=== PATIENT | female | born 1965 ===

== ENCOUNTER 2016-08-10 19:42 | Emergency (ER) | payer OTHER ==
[2016-08-10 19:42] VITALS: BMI 32.0
[2016-08-10 20:02] VITALS: BP 165/95; PULSE 100; RESP 18; TEMP 98.5; O2SAT 99
--- NOTE | 2016-08-10 21:23 | ED PDOC ---
HPI: Eye Injury/Pain Time Seen by Provider: 08/10/16 20:32 Chief Complaint (Nursing): Eye Problem Chief Complaint (Provider): left eye pain History Per: Patient History/Exam Limitations: no limitations Onset/Duration Of Symptoms: Days (x 4) Current Symptoms Are (Timing): Still Present Injury To Eye?: No Additional Complaint(s): Felisha Castro is a 50 year old female, with a previous medical history of hypertension, who presents to the ED with complaints of left eye pain ongoing for the past 4 days. Pt reports associated symptoms of swelling and redness to the corner of the left eye. Pt reports no contact usages, trauma or visual changes. Pt reports to self medicating with OTC eye drops which have provided no relief. Pt denies any additional complaints at this time. PMD: none provided Past Medical History Reviewed: Historical Data, Nursing Documentation, Vital Signs Vital Signs: Last Vital Signs Temp 98.5 F 08/10/16 20:00 Pulse 100 H 08/10/16 20:00 Resp 18 08/10/16 20:00 BP 165/95 H 08/10/16 20:00 Pulse Ox 99 08/10/16 20:00 - Medical History PMH: Asthma, HTN - Family History Family History: States: Unknown Family Hx - Immunization History Hx Tetanus Toxoid Vaccination: No Hx Influenza Vaccination: Yes Hx Pneumococcal Vaccination: No - Home Medications Home Medications: Ambulatory Orders Medication Instructions Recorded Cyclobenzaprine [Cyclobenzaprine 10 mg PO TID #30 tab 11/23/15 HCl] Ibuprofen 600 mg PO Q8 #30 tablet 11/23/15 Acetaminophen [Tylenol] 325 mg PO Q6 PRN #20 tab 12/29/15 Amoxicillin/Clavulanate [Augmentin 1 tab PO BID #14 tab 12/29/15 875 MG-125 MG] Naproxen [Naprosyn] 500 mg PO BID #20 tab 12/29/15 diaZEpam [Valium] 5 mg PO BID #10 tab 12/29/15 Naproxen [Naprosyn Tab] 375 mg PO Q8 PRN #21 tab 02/10/16 - Allergies Allergies/Adverse Reactions: Allergies Allergy/AdvReac Type Severity Reaction Status Date / Time apple Allergy Verified 12/29/15 19:09 banana Allergy Verified 12/29/15 19:09 enciso Allergy Verified 12/29/15 19:09 Review of Systems ROS Statement: Except As Marked, All Systems Reviewed And Found Negative Eyes: Positive for: Pain (left eye), Redness, Other (swelling ). Negative for: Vision Change Physical Exam - Reviewed Nursing Documentation Reviewed: Yes Vital Signs Reviewed: Yes - Physical Exam Appears: Positive for: Well, Non-toxic, No Acute Distress Eye Exam: Positive for: EOMI, PERRL, Other (small pinguecula on the left medial canthus; no discharge). Negative for: Nystagmus, Periorbital swelling, Periorbital tenderness, Conjunctival injection Neurologic/Psych: Positive for: Alert, Oriented - ECG O2 Sat by Pulse Oximetry: 99 (RA) Pulse Ox Interpretation: Normal - Progress ED Course And Treament: Pt is advised to follow up with Dr. Ferguson for further evaluation. Medical Decision Making Medical Decision Making: Initial Impression: Pinguecula Initial Plan: * physical exam * disposition Scribe Attestation: Documented by Juliet Courtney, acting as a scribe for Janes Beltran PA-C. Provider Scribe Attestation: All medical record entries made by the Scribe were at my direction and personally dictated by me. I have reviewed the chart and agree that the record accurately reflects my personal performance of the history, physical exam, medical decision making, and the department course for this patient. I have also personally directed, reviewed, and agree with the discharge instructions and disposition. Disposition - Clinical Impression Clinical Impression: Pinguecula - Patient ED Disposition Is Patient to be Admitted: No - Disposition Referrals: Tevin Ferguson MD [Staff Provider] - Disposition: Routine/Home Disposition Time: 21:45 Condition: STABLE Additional Instructions: Follow up with Dr. Ferguson for further evaluation of pinguecula. Instructions: Eye Pain (ED) Print Language: TAIWANESE
== END 2016-08-10 21:56 | disposition home or self-care (01) ==
LOC: H.ER 19:42
DX: H11.159 Pinguecula, unspecified eye (principal); I10 Essential (primary) hypertension

== ENCOUNTER 2016-10-21 21:43 | Emergency (ER) | payer OTHER ==
[2016-10-21 21:44] VITALS: BMI 32.0
[2016-10-21 21:58] VITALS: BP 149/89; PULSE 74; RESP 16; TEMP 98.4; O2SAT 100
--- NOTE | 2016-10-21 22:17 | ED PDOC ---
HPI: CCC, URI, Sore Throat Time Seen by Provider: 10/21/16 21:50 Chief Complaint (Nursing): ENT Problem Chief Complaint (Provider): sore throat History Per: Patient History/Exam Limitations: no limitations Have you had recent travel within the past 21 days to any of the following countries: [place], [place], [place] or [place]?: No Location Of Pain: Throat Associated Symptoms: Sore Throat, Cough. denies: Fever, Chills, Sputum, Neck Pain, Sinus Drainage, Myalgias, Nasal Congestion, Nausea, Vomiting, Diarrhea Past Medical History Reviewed: Historical Data, Nursing Documentation, Vital Signs Vital Signs: Last Vital Signs Temp 98.4 F 10/21/16 21:50 Pulse 74 10/21/16 21:50 Resp 16 10/21/16 21:50 BP 149/89 10/21/16 21:50 Pulse Ox 100 10/21/16 22:19 - Medical History PMH: Asthma, HTN - Family History Family History: States: Unknown Family Hx - Immunization History Hx Tetanus Toxoid Vaccination: No Hx Influenza Vaccination: Yes Hx Pneumococcal Vaccination: No - Home Medications Home Medications: Ambulatory Orders Medication Instructions Recorded Cyclobenzaprine [Cyclobenzaprine 10 mg PO TID #30 tab 11/23/15 HCl] Ibuprofen 600 mg PO Q8 #30 tablet 11/23/15 Acetaminophen [Tylenol] 325 mg PO Q6 PRN #20 tab 12/29/15 Amoxicillin/Clavulanate [Augmentin 1 tab PO BID #14 tab 12/29/15 875 MG-125 MG] Naproxen [Naprosyn] 500 mg PO BID #20 tab 12/29/15 diaZEpam [Valium] 5 mg PO BID #10 tab 12/29/15 Naproxen [Naprosyn Tab] 375 mg PO Q8 PRN #21 tab 02/10/16 Benzonatate [Tessalon Perles] 100 mg PO BID #20 sgl 10/21/16 Mag&Al/Simet/Diphen/Lido [First 30 ml MM DAILY #1 kit 10/21/16 Magic Mouthwash] - Allergies Allergies/Adverse Reactions: Allergies Allergy/AdvReac Type Severity Reaction Status Date / Time apple Allergy RASH Verified 10/21/16 21:49 banana Allergy RASH Verified 10/21/16 21:49 enciso Allergy RASH Verified 10/21/16 21:49 Review of Systems ROS Statement: Except As Marked, All Systems Reviewed And Found Negative Constitutional: Negative for: Fever, Chills ENT: Positive for: Throat Pain, Throat Swelling Respiratory: Negative for: Cough, Shortness of Breath Physical Exam - Reviewed Nursing Documentation Reviewed: Yes Vital Signs Reviewed: Yes - Physical Exam Appears: Positive for: Well, Non-toxic, No Acute Distress Head Exam: Positive for: ATRAUMATIC, NORMAL INSPECTION, NORMOCEPHALIC Skin: Positive for: Normal Color, Warm, DRY ENT: Positive for: Pharyngeal Erythema, Tonsillar Exudate, Tonsillar Swelling Neck: Positive for: Normal, Painless ROM Cardiovascular/Chest: Positive for: Regular Rate, Rhythm Respiratory: Positive for: CNT, Normal Breath Sounds Neurologic/Psych: Positive for: Alert, Oriented - ECG O2 Sat by Pulse Oximetry: 100 - Progress ED Course And Treament: strep testing r/o strep Medical Decision Making Medical Decision Making: strep is negative pt most likely with viral illness given tessalon perles and magjic mouth wash avised to rest and take motrin for any fever or body aches. nontoxic appearing advised to continue pmd f.u Disposition - Clinical Impression Clinical Impression: Pharyngitis - Patient ED Disposition Is Patient to be Admitted: No Counseled Patient/Family Regarding: Studies Performed, Diagnosis, Need For Followup, Rx Given - Disposition Referrals: [facility] [place] [Outside] Disposition: Routine/Home Disposition Time: 22:31 Condition: STABLE Prescriptions: Benzonatate [Tessalon Perles] 100 mg PO BID #20 sgl Mag&Al/Simet/Diphen/Lido [First Magic Mouthwash] 30 ml MM DAILY #1 kit Instructions: Pharyngitis (ED)
== END 2016-10-21 23:04 | disposition home or self-care (01) ==
LOC: H.ER 21:43
DX: J02.9 Acute pharyngitis, unspecified (principal); R05 Cough; I10 Essential (primary) hypertension; J45.909 Unspecified asthma, uncomplicated